=== PATIENT | female | born 1955 | race Two or more races ===

== ENCOUNTER 2022-06-14 20:38 | Emergency (ER) | payer OTHER ==
[~2022-06-14] VITALS: Ht 154.9 cm; Wt 68.5 kg
[2022-06-14] MEDS ORDERED: BUSPIRONE HCL5 MG (21:00)
[2022-06-14] MEDS ORDERED: TRAZODONE HCL50 MG (21:00)
[2022-06-14] MEDS ORDERED: RESTORIL7.5 MG PO (21:01)
[2022-06-15] MEDS ORDERED: PEPCID AC20 MG PO (10:16)
[2022-06-15] MEDS ORDERED: ZOFRAN8 MG PO (10:16)
[2022-06-15] MEDS ORDERED: LEVSIN/SL0.125 MG SL (10:17)
== END 2022-06-15 10:45 | disposition home or self-care (01) ==
LOC: ER 20:38
DX: R10.13 Epigastric pain (principal); F41.9 Anxiety disorder, unspecified; Z88.2 Allergy status to sulfonamides; K57.90 Diverticulosis of intestine, part unspecified, without perforation or abscess without bleeding; R19.7 Diarrhea, unspecified

== ENCOUNTER 2022-11-21 14:56 | Inpatient (IN) | payer OTHER ==
[~2022-11-21] VITALS: Ht 160 cm; Wt 70.3 kg
[~2022-11-21 14:56] MED LIST: BUSPIRONE HCL5 MG; LEVSIN/SL0.125 MG SL; PEPCID AC20 MG PO; RESTORIL7.5 MG PO; TRAZODONE HCL50 MG; ZOFRAN8 MG PO
[2022-11-21] MEDS ORDERED: PRISTIQ ER50 MG (15:24)
[2022-11-21] MEDS ORDERED: NEXIUM20 M1 (15:24)
[2022-11-21] MEDS ORDERED: RESTORIL30 MG (15:25)
[2022-11-21] MEDS ORDERED: ATIVAN1 M1 (15:25)
[2022-11-23] MEDS ORDERED: DESVENLAFAXINE50 MG (16:29)
[2022-11-23] MEDS ORDERED: TRAZODONE HCL100 MG (16:29)
[2022-11-23] MEDS ORDERED: MEMANTINE HCL10 MG (16:29)
[2022-11-23] MEDS ORDERED: BREO ELLIPTA I1 EACH (16:30)
[2022-11-23] MEDS ORDERED: LUCENTIS (16:30)
[2022-11-23] MEDS ORDERED: LEVALBUTEROL TA15 GM (16:30)
== END 2022-11-25 18:05 | disposition home or self-care (01) | DRG 392 ==
LOC: ER 14:56 → SEC-K 11-22 00:25 → SURH 11-22 00:25 → MEDJ 11-24 12:01
PROVIDERS: General Practice; ADMIT Specialist; ATTEND Specialist
PROC: BW21YZZ Computerized Tomography (CT Scan) of Abdomen and Pelvis using Other Contrast (ICD-10-PCS; principal; 2022-11-21)
PROC: 4A12X4Z Monitoring of Cardiac Electrical Activity, External Approach (ICD-10-PCS; 2022-11-24)
DX: K57.92 Diverticulitis of intestine, part unspecified, without perforation or abscess without bleeding (principal); K59.09 Other constipation; Z90.49 Acquired absence of other specified parts of digestive tract